=== PATIENT | female | born 1985 | race Caucasian/White ===

== ENCOUNTER 2022-01-30 11:13 | Emergency (ER) | payer OTHER ==
[2022-01-30 11:53] LABS: BASO % 0.2 % (0.0-1.0); EOS % 0.2 % (1.0-4.0); HEMATOCRIT 49.4 % (37.0-47.0); LYMPH # 1.9 10*3/uL (1.3-4.4); LYMPH % 20.9 % (27.0-41.0); MEAN CELL VOLUME 93.7 fl (81.0-99.0); MEAN CORPUSCULAR HGB 32.3 pg (27.0-31.0); MEAN CORPUSCULAR HGB CONC 34.4 g/dl (33.0-37.0); MEAN PLATELET VOLUME 8.2 fl (9.6-12.3); MONO # 0.6 10*3/uL (0.1-1.0); MONO % 6.1 % (3.0-9.0); NEUT # 6.6 10*3/uL (2.3-7.9); NEUT % 72.2 % (47.0-73.0); PLATELET COUNT AUTOMATED 229 10*3/uL (130-400); RED BLOOD COUNT 5.27 10*6/uL (4.10-5.10); RED CELL DISTRI WIDTH 11.2 % (0-14.5); WHITE BLOOD COUNT 9.2 10*3/uL (4.8-10.8)
[2022-01-30 12:07] LABS: ALKALINE PHOSPHATASE 132 U/L (45-117); BUN 5 mg/dl (7-24); CHLORIDE 103 mmol/L (98-107); CREATININE 0.73 mg/dL (0.55-1.02); POTASSIUM 3.6 mmol/L (3.5-5.1); SGOT/AST 47 IU/L (3-35); SGPT/ALT 39 U/L (12-78); SODIUM 138 mmol/L (136-145)
[2022-01-30 12:14] LABS: ACT PARTIAL THROMBO TIME 30.5 SECONDS (20.0-32.1)
[2022-01-30] MEDS ORDERED: ATIVAN1 MG PO (14:40)
== END 2022-01-30 14:38 | disposition home or self-care (01) ==
LOC: ED 11:13
PROVIDERS: Nurse Practitioner Family
DX: R07.9 Chest pain, unspecified (principal); F41.9 Anxiety disorder, unspecified

== ENCOUNTER 2024-03-14 12:25 | Emergency (ER) | payer OTHER ==
[~2024-03-14] VITALS: Ht 157.4 cm; Wt 77.1 kg
[~2024-03-14 12:25] MED LIST: ATIVAN1 MG PO; BUSPAR15 MG PO; DOXYCYCLINE MO100 MG PO; FLUONAZOLE200 MG PO; LASIX40 MG PO; MAGNESIUM400 MG PO
[2024-03-14] MEDS ORDERED: SODIUM CHLORIDE 0.9% 1,000 ML IV SCH (14:30)
[2024-03-14] MEDS ORDERED: MORPHINE Sulfate 2 MG/ML SYR IV ONE (14:30)
[2024-03-14] MEDS ORDERED: IOHEXOL 300 MG/ML 100 ML VIAL IV ONE (14:35)
[2024-03-14] MEDS ORDERED: Ondansetron Hydrochloride 4 MG/2 ML VIAL IV ONE (14:35)
[2024-03-14 14:45] LABS: BASO % 0.2 % (0.0-1.0); EOS # 0.1 10*3/uL (0.0-0.4); EOS % 0.6 % (1.0-4.0); HEMATOCRIT 42.5 % (37.0-47.0); MEAN CELL VOLUME 93.2 fl (81.0-99.0); MEAN CORPUSCULAR HGB 31.4 pg (27.0-31.0); MEAN CORPUSCULAR HGB CONC 33.6 g/dl (33.0-37.0); MEAN PLATELET VOLUME 8.1 fl (9.6-12.3); MONO # 0.6 10*3/uL (0.1-1.0); NEUT # 6.6 10*3/uL (2.3-7.9); NEUT % 63.8 % (47.0-73.0); PLATELET COUNT AUTOMATED 172 10*3/uL (130-400); RED BLOOD COUNT 4.56 10*6/uL (4.10-5.10); RED CELL DISTRI WIDTH 14.2 % (0-14.5); WHITE BLOOD COUNT 10.3 10*3/uL (4.8-10.8)
[2024-03-14] MEDS ORDERED: CLINDAMYCIN HC300 MG PO (14:56)
[2024-03-14] MEDS ORDERED: IBU800 M1 PO (14:56)
[2024-03-14] MEDS ORDERED: FLUCONAZOLE100 MG PO (14:57)
[2024-03-14 15:02] LABS: BUN 6 mg/dl (9-23); CHLORIDE 106 mmol/L (98-107); POTASSIUM 3.2 mmol/L (3.4-5.1)
[2024-03-14] MEDS ORDERED: HYDROCODONE-AC1 EAC1 PO (17:18)
[2024-03-14] MEDS ORDERED: PENICILLIN VK500 MG PO (17:18)
[2024-03-14] MEDS ORDERED: POTASSIUM CHLORIDE 20 MEQ TAB PO ONE (17:20)
[2024-03-14] MEDS ORDERED: Acetaminophen/Oxycodone 5 MG/325 MG TABLET PO ONE (17:20)
[2024-03-14] MEDS ORDERED: PENICILLIN V POTASSIUM 500 MG TAB PO ONE (17:20)
[2024-03-14] MEDS ORDERED: Ketorolac Tromethamine 30 MG/ML VIAL IV ONE (17:25)
== END 2024-03-14 17:36 | disposition home or self-care (01) ==
LOC: ED 12:25
PROVIDERS: Nurse Practitioner Family
DX: K04.7 Periapical abscess without sinus (principal); R22.0 Localized swelling, mass and lump, head; E87.6 Hypokalemia; E46 Unspecified protein-calorie malnutrition; F41.9 Anxiety disorder, unspecified; Z91.040 Latex allergy status; Z79.2 Long term (current) use of antibiotics; Z79.899 Other long term (current) drug therapy; Z87.891 Personal history of nicotine dependence; Z98.51 Tubal ligation status

== ENCOUNTER 2024-05-28 04:34 | Emergency (ER) | payer OTHER ==
[~2024-05-28] VITALS: Ht 157.4 cm; Wt 79.4 kg
[~2024-05-28 04:34] MED LIST changes: +CLINDAMYCIN HC300 MG PO; +FLUCONAZOLE100 MG PO; +HYDROCODONE-AC1 EAC1 PO; +IBU800 M1 PO; +PENICILLIN VK500 MG PO
[2024-05-28 05:24] LABS: ALKALINE PHOSPHATASE 168 U/L (46-116); BUN 6 mg/dl (9-23); CHLORIDE 98 mmol/L (98-107); POTASSIUM 3.2 mmol/L (3.4-5.1); SGPT/ALT 23 U/L (5-49); TOTAL PROTEIN 7.6 gm/dL (6.0-8.0)
[2024-05-28] MEDS ORDERED: LORazepam 1 MG TAB PO ONE (05:30)
[2024-05-28 06:02] LABS: BASO % 0.2 % (0.0-1.0); HEMATOCRIT 44.6 % (37.0-47.0); LYMPH # 1.8 10*3/uL (1.3-4.4); LYMPH % 18.5 % (27.0-41.0); MEAN CELL VOLUME 93.7 fl (81.0-99.0); MEAN CORPUSCULAR HGB 31.9 pg (27.0-31.0); MEAN CORPUSCULAR HGB CONC 34.1 g/dl (33.0-37.0); MEAN PLATELET VOLUME 8.8 fl (9.6-12.3); MONO # 0.9 10*3/uL (0.1-1.0); MONO % 9.5 % (3.0-9.0); NEUT # 6.8 10*3/uL (2.3-7.9); NEUT % 71.3 % (47.0-73.0); PLATELET COUNT AUTOMATED 228 10*3/uL (130-400); RED BLOOD COUNT 4.76 10*6/uL (4.10-5.10); RED CELL DISTRI WIDTH 11.5 % (0-14.5); WHITE BLOOD COUNT 9.6 10*3/uL (4.8-10.8)
== END 2024-05-28 06:36 | disposition home or self-care (01) ==
LOC: ED 04:34
PROVIDERS: Internal Medicine
DX: F41.9 Anxiety disorder, unspecified (principal); E87.6 Hypokalemia; R11.10 Vomiting, unspecified; R00.0 Tachycardia, unspecified; Z91.040 Latex allergy status; Z88.8 Allergy status to other drugs, medicaments and biological substances; Z98.890 Other specified postprocedural states; Z98.51 Tubal ligation status; Z87.891 Personal history of nicotine dependence

== ENCOUNTER 2024-06-05 10:45 | Inpatient (IN) | payer OTHER ==
[~2024-06-05] VITALS: Ht 157.5 cm; Wt 79.8 kg
[2024-06-05 11:06] VITALS: BP 135/96
[2024-06-05] MEDS ORDERED: ESCITALOPRAM OXA5 MG PO (11:13)
[2024-06-05] MEDS ORDERED: LORazepam 1 MG TAB PO ONE (11:50)
[2024-06-05] MEDS ORDERED: Ondansetron Hydrochloride 4 MG TAB PO ONE (11:50)
[2024-06-05 12:03] LABS: BASO % 0.2 % (0.0-1.0); HEMATOCRIT 45.4 % (37.0-47.0); MEAN CELL VOLUME 89.7 fl (81.0-99.0); MEAN CORPUSCULAR HGB 31.6 pg (27.0-31.0); MEAN CORPUSCULAR HGB CONC 35.2 g/dl (33.0-37.0); MEAN PLATELET VOLUME 8.6 fl (9.6-12.3); MONO # 0.7 10*3/uL (0.1-1.0); NEUT % 76.2 % (47.0-73.0); PLATELET COUNT AUTOMATED 246 10*3/uL (130-400); RED BLOOD COUNT 5.06 10*6/uL (4.10-5.10); RED CELL DISTRI WIDTH 11.6 % (0-14.5); WHITE BLOOD COUNT 10.5 10*3/uL (4.8-10.8)
[2024-06-05 12:25] LABS: ALKALINE PHOSPHATASE 166 U/L (46-116); CHLORIDE 86 mmol/L (98-107); LIPASE 27 U/L (12-53); SGPT/ALT 36 U/L (5-49); TOTAL PROTEIN 7.7 gm/dL (6.0-8.0)
[2024-06-05 12:29] LABS: BUN < 5 mg/dl (9-23)
[2024-06-05 12:31] LABS: POTASSIUM 2.1 mmol/L (3.4-5.1)
[2024-06-05] MEDS ORDERED: POTASSIUM CHLORIDE 20 MEQ TAB PO ONE (12:40)
[2024-06-05] MEDS ORDERED: SODIUM CHLORIDE 0.9% 1,000 ML IV ONE ×2 (13:00→14:55)
[2024-06-05] MEDS ORDERED: POTASSIUM CHLORIDE IN WATER 100 ML IV SCH (13:00)
[2024-06-05 13:59] VITALS: BP 119/91
[2024-06-05 15:31] VITALS: BP 125/76
[2024-06-05] MEDS ORDERED: Piperacillin Sodium/Tazobact 50 ML IV SCH ×2 (16:00→18:00)
[2024-06-05] MEDS ORDERED: Ondansetron Hydrochloride 4 MG/2 ML VIAL IV PRN (18:50)
[2024-06-05 19:12] VITALS: BP 128/65
[2024-06-05 22:33] VITALS: BP 130/87
[2024-06-05 23:29] LABS: BILIRUBIN Negative (Negative); BLOOD Negative (Negative); CLARITY Clear (Clear); COLOR Yellow (Yellow); GLUCOSE Negative (Negative); KETONE Negative (Negative); LEUKO ESTERASE Negative (Negative); NITRITE Negative (Negative)
[2024-06-06 00:10] LABS: EPITHELIAL CELLS 31-40
[2024-06-06 00:11] LABS: WBC 0-2 wbc/hpf (0-5)
[2024-06-06 06:00] LABS: BASO % 0.2 % (0.0-1.0); EOS % 0.3 % (1.0-4.0); HEMATOCRIT 39.2 % (37.0-47.0); MEAN CELL VOLUME 91.4 fl (81.0-99.0); MEAN CORPUSCULAR HGB 32.2 pg (27.0-31.0); MEAN CORPUSCULAR HGB CONC 35.2 g/dl (33.0-37.0); MEAN PLATELET VOLUME 8.7 fl (9.6-12.3); MONO # 0.8 10*3/uL (0.1-1.0); MONO % 5.6 % (3.0-9.0); NEUT # 10.6 10*3/uL (2.3-7.9); NEUT % 79.6 % (47.0-73.0); PLATELET COUNT AUTOMATED 192 10*3/uL (130-400); RED BLOOD COUNT 4.29 10*6/uL (4.10-5.10); RED CELL DISTRI WIDTH 11.9 % (0-14.5); WHITE BLOOD COUNT 13.3 10*3/uL (4.8-10.8)
[2024-06-06 07:03] LABS: ALKALINE PHOSPHATASE 125 U/L (46-116); CHLORIDE 92 mmol/L (98-107); CHOLESTEROL 161 mg/dL (<200); LDL CHOLESTEROL 102 mg/dL (9-159); POTASSIUM 2.9 mmol/L (3.4-5.1); SGPT/ALT 23 U/L (5-49); TOTAL PROTEIN 6.2 gm/dL (6.0-8.0); TRIGLYCERIDES 88 mg/dl (<150)
[2024-06-06 07:14] LABS: BUN < 5 mg/dl (9-23)
[2024-06-06] MEDS ORDERED: MAGNESIUM SULFATE 50 ML IV ONE (07:20)
[2024-06-06] MEDS ORDERED: SODIUM CHLORIDE 0.9% 1,000 ML IV ONE (07:25)
[2024-06-06 08:00] VITALS: BP 115/87
[2024-06-06] MEDS ORDERED: POTASSIUM CHLORIDE IN WATER 100 ML IV SCH (08:00)
[2024-06-06] MEDS ORDERED: POTASSIUM CHLORIDE 20 MEQ TAB PO ONE ×2 (08:05→14:55)
[2024-06-06] MEDS ORDERED: ESCITALOPRAM OXALATE 10 MG TAB PO SCH (10:00)
[2024-06-06 12:00] VITALS: BP 109/85
[2024-06-06 14:30] LABS: CHLORIDE 92 mmol/L (98-107); POTASSIUM 3.2 mmol/L (3.4-5.1)
[2024-06-06 14:31] LABS: BUN < 5 mg/dl (9-23)
[2024-06-06 16:00] VITALS: BP 116/77
[2024-06-06 20:00] VITALS: BP 115/69
[2024-06-07] VITALS: BP 102/70
[2024-06-07] MEDS ORDERED: TEMAZEPAM 15 MG CAP PO ONE (01:00)
[2024-06-07 05:21] LABS: CHLORIDE 101 mmol/L (98-107); POTASSIUM 3.1 mmol/L (3.4-5.1)
[2024-06-07 05:22] LABS: BUN < 5 mg/dl (9-23)
[2024-06-07 06:13] LABS: BASO % 0.2 % (0.0-1.0); EOS # 0.1 10*3/uL (0.0-0.4); EOS % 0.5 % (1.0-4.0); MEAN CELL VOLUME 93.7 fl (81.0-99.0); MEAN CORPUSCULAR HGB 32.2 pg (27.0-31.0); MEAN CORPUSCULAR HGB CONC 34.3 g/dl (33.0-37.0); MEAN PLATELET VOLUME 9.2 fl (9.6-12.3); MONO # 0.8 10*3/uL (0.1-1.0); MONO % 5.8 % (3.0-9.0); NEUT # 10.2 10*3/uL (2.3-7.9); NEUT % 76.8 % (47.0-73.0); PLATELET COUNT AUTOMATED 177 10*3/uL (130-400); RED BLOOD COUNT 3.95 10*6/uL (4.10-5.10); RED CELL DISTRI WIDTH 11.7 % (0-14.5); WHITE BLOOD COUNT 13.2 10*3/uL (4.8-10.8)
[2024-06-07] MEDS ORDERED: POTASSIUM CHLORIDE 20 MEQ TAB PO ONE ×2 (07:15→07:50)
[2024-06-07 08:00] VITALS: BP 131/84
[2024-06-07] MEDS ORDERED: CIPRO500 MG PO (10:59)
[2024-06-07] MEDS ORDERED: METRONIDAZOLE500 M1 PO (10:59)
== END 2024-06-07 12:51 | disposition home or self-care (01) | DRG 872 ==
LOC: ED 10:45 → 4E 13:53 → EDHOLD 13:53 → 4E 21:15
PROVIDERS: Internal Medicine; Physician Assistant Medical; ADMIT Internal Medicine; ATTEND Internal Medicine
DX: A41.9 Sepsis, unspecified organism (principal); E46 Unspecified protein-calorie malnutrition; E87.1 Hypo-osmolality and hyponatremia; E87.6 Hypokalemia; K52.9 Noninfective gastroenteritis and colitis, unspecified; R74.01 Elevation of levels of liver transaminase levels; R73.9 Hyperglycemia, unspecified; Z91.040 Latex allergy status; Z79.1 Long term (current) use of non-steroidal anti-inflammatories (NSAID); Z79.899 Other long term (current) drug therapy; Z98.51 Tubal ligation status; Z87.891 Personal history of nicotine dependence; Z68.32 Body mass index [BMI] 32.0-32.9, adult